=== PATIENT | male | born 1980 | race Two or more races ===

== ENCOUNTER 2023-09-02 07:51 | Emergency (ER) | payer MEDICAID, OTHER ==
[~2023-09-02] VITALS: Ht 172.7 cm; Wt 65.2 kg
[2023-09-02 08:42] VITALS: BP 144/86; PULSE 97; RESP 14; TEMP 98.5; O2SAT 97
[2023-09-02] MEDS ORDERED: NAPR-746 PO (09:46)
[2023-09-02] MEDS ORDERED: CEPH500C PO (09:46)
[2023-09-02] MEDS: cefTRIAXone SOD 1,000 MG VL IM ONE (10:03)
== END 2023-09-02 09:47 | disposition home or self-care (01) ==
LOC: ER 07:51
DX: L02.421 Furuncle of right axilla (principal)
CPT/HCPCS: 96372; 99283; J0696

== ENCOUNTER 2023-10-26 12:34 | Emergency (ER) | payer MEDICAID ==
[~2023-10-26] VITALS: Ht 172.7 cm; Wt 74.8 kg
[~2023-10-26 12:34] MED LIST: CEPH500C PO; NAPR-746 PO
[2023-10-26] MEDS ORDERED: CEPH500C PO (14:09)
[2023-10-26] MEDS ORDERED: BACDST PO (14:09)
[2023-10-26] MEDS ORDERED: NAPR-746 PO (14:09)
[2023-10-26] MEDS: cefTRIAXone SOD 1,000 MG VL IM ONE (14:28)
[2023-10-26 14:41] VITALS: BP 162/105; PULSE 90; RESP 20; TEMP 98; O2SAT 99
== END 2023-10-26 14:46 | disposition home or self-care (01) ==
LOC: ER 12:34
DX: L08.89 Other specified local infections of the skin and subcutaneous tissue (principal); R23.8 Other skin changes; R03.0 Elevated blood-pressure reading, without diagnosis of hypertension; Z79.899 Other long term (current) drug therapy
CPT/HCPCS: 96372; 99283; J0696